=== PATIENT | male | born 2000 | race Two or more races ===

== ENCOUNTER 2022-08-03 16:12 | Emergency (ER) | payer BC, OTHER ==
[~2022-08-03] VITALS: Ht 172.7 cm; Wt 81.6 kg
[2022-08-03] MEDS ORDERED: HYDR-501 PO (17:16)
--- NOTE | 2022-08-03 17:31 | NUR ---
Patient discharged to home in stable condition. Written and verbal after care instructions given. Patient verbalizes understanding of instructions. Stressed follow up or return to ER for worsening s/s.
[2022-08-03 18:53] VITALS: BP 130/65
== END 2022-08-03 17:40 | disposition home or self-care (01) ==
LOC: ER 16:12
DX: F41.9 Anxiety disorder, unspecified (principal)
CPT/HCPCS: 93005; A4663